=== PATIENT | male | born 1975 | race African-American/Black ===

== ENCOUNTER 2018-03-27 22:24 | Inpatient (IN) | payer OTHER ==
[~2018-03-27] VITALS: Ht 167.6 cm; Wt 68.2 kg
--- NOTE | 2018-03-27 22:44 | ED GENERAL ADULT ---
History of Present Illness General Chief Complaint: General Adult Stated Complaint: "DKA, DEHYDRATED,+N+V-D" Source: patient Exam Limitations: no limitations Vital Signs & Intake/Output Vital Signs & Intake/Output Vital Signs Date Time Temp Pulse Resp B/P B/P Pulse O2 O2 Flow FiO2 Mean Ox Delivery Rate 03/28 0320 100 Room Air 03/28 0320 97.7 120 24 150/100 100 Room Air 03/28 0105 96.6 115 20 166/93 100 Room Air 03/28 0019 98.8 116 20 125/58 95 Room Air 03/27 2234 97.4 116 18 115/65 98 Room Air ED Intake and Output 03/28 0000 03/27 1200 Intake Total 1000 Output Total Balance 1000 Intake, IV 1000 Patient 157 lb Weight Allergies Coded Allergies: No Known Allergies (03/27/18) Reconcile Medications Atorvastatin Calcium 20 MG TABLET 1 TAB PO DAILY HL (Reported) Insulin Glargine,Hum.rec.anlog (Lantus Solostar) 100 UNIT/ML (3 ML) INSULN.PEN 20 UNIT SC QPM DM (Reported) Lisinopril 2.5 MG TABLET 1 TAB PO DAILY HTN (Reported) Sitagliptin Phos/Metformin HCl (Janumet 50-1,000 MG Tablet) 50 MG-1,000 MG TABLET 1 TAB PO BID DM (Reported) Triage Note: 42 YEAR OLD MALE TO TRIAGE WITH COMPLAINTS THAT HE THINKS HE IS IN DKA, FEELS LIKE HE IS DEHYDRATED" BUT STATES THAT HE HAS BEEN DRINKING LEMON WATER ALL DAY. PT IS IDDM AND STATES THAT HE DID NOT TAKE HIS INSULIN TODAY OR HIS FINGERSTICK, FS AT TRIAGE GREATER THAN 500 , STATES THAT HIS MOUTH FEELS DRY , AND THAT HE FEELS VERY WEAK , PT UNABLE TO HOLD HIS HEAD UP AT TRIAGE Triage Nurses Notes Reviewed? yes Onset: Abrupt Duration: day(s): Timing: recent history Injury Environment: home Severity: moderate, severe Modifying Factors: Improves With: rest. Associated Symptoms: weakness HPI: 42 yo gentleman with diabetes, shares that he last took his lantus yesterday. He had his insulin in his car, but neglected to take it. He presents with glucose >500. He notes that he feels weak, dizzy, with mild nausea. Past History Travel History Traveled to [place] past 21 day No Medical History Any Pertinent Medical History? 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 No Review of Systems Review of Systems Constitutional: Reports: no symptoms. EENTM: Reports: no symptoms. Respiratory: Reports: no symptoms. Cardiovascular: Reports: no symptoms. GI: Reports: no symptoms. Genitourinary: Reports: no symptoms. Musculoskeletal: Reports: no symptoms. Skin: Reports: no symptoms. Neurological/Psychological: Reports: no symptoms. Hematologic/Endocrine: Reports: no symptoms. Immunologic/Allergic: Reports: no symptoms. All Other Systems: Reviewed and Negative Physical Exam Physical Exam General Appearance: moderate distress Head: normal appearance Eyes: Bilateral: normal appearance. Ears, Nose, Throat: normal pharynx, dry mucosa Neck: normal inspection, supple, full range of motion Respiratory: normal breath sounds, chest non-tender, no respiratory distress, quiet respiration, lungs clear Cardiovascular: regular rate/rhythm Gastrointestinal: normal bowel sounds, soft, non-tender Back: normal inspection, normal range of motion Extremities: normal inspection, normal capillary refill, normal range of motion, no edema Neurologic/Psych: no motor/sensory deficits, awake, alert, oriented x 3 Skin: intact, normal color, warm/dry Core Measures ACS in differential dx? No CVA/TIA Diagnosis: No Sepsis Present: No Sepsis Focused Exam Completed? No Progress Differential Diagnoses I considered the following diagnoses in my evaluation of the patient: dka vs sepsis vs other. Plan of Care: Orders Procedure Date/time Status Nothing by Mouth 03/28 B Active ICU LAB BUNDLE 03/28 07 Active CBC WITHOUT DIFFERENTIAL 03/28 07 Active ACTIVE SURVEILLANCE NARES 03/28 0400 Active Wound Care/Dressing 03/28 318 Complete Weight 03/28 318 Active VTE Mechanical Prophylaxis 03/28 318 Active Vital Signs 03/28 318 Active Turn and Reposition 03/28 318 Complete Drains/Tubes 03/28 318 Complete Teach/Educate 03/28 318 Active Skin Integrity Protocol 03/28 318 Active Skin/Pressure Ulcer Assess (Sk 03/28 0318 Active Precautions 03/28 0318 Active Pain Treatment and Response 03/28 0318 Active Nutritional Intake, Monitor 03/28 031 Active Isolation 03/28 0318 Active CIWA 03/28 031 Complete Patient Care Conference 03/28 0318 Active Activity/Ambulation 03/28 0318 Active ICU LAB BUNDLE 03/28 0300 Complete CBC WITHOUT DIFFERENTIAL 03/28 0300 Complete LACTIC ACID 03/28 0144 Complete ARTERIAL BLOOD GAS (GEN) 03/28 0023 Active URINALYSIS 03/28 0017 Complete Pathway - chart 03/28 0004 Active House Staff 03/28 0004 Active Patient Data 03/28 0004 Active Code Status 03/28 0004 Active Lab Add-on Test 03/28 UNK Active VTE Mechanical Prophylaxis 03/28 UNK Active Intake & Output 03/28 UNK Active FingerStick- Glucose 03/28 UNK Active Patient Data 03/27 2345 Active Admit to inpatient 03/27 2342 Active Intake & Output 03/27 2312 Complete PHOSPHORUS 03/27 2305 Active MAGNESIUM 03/27 2305 Active GLYCOSYLATED HGB 03/27 2305 Active MIXED VENOUS BLOOD GAS (GEN) 03/27 2246 Complete ACETONE 03/27 2246 Complete TROPONIN LEVEL 03/27 2244 Active LIPASE 03/27 2244 Active LACTIC ACID 03/27 2244 Active HEPATIC FUNCTION PANEL 03/27 2244 Active D-DIMER 03/27 2244 Complete CBC WITHOUT DIFFERENTIAL 03/27 2244 Complete BASIC METABOLIC PANEL 03/27 2244 Active AMYLASE 03/27 2244 Active EKG 03/27 2244 Active FingerStick- Glucose 03/27 2239 Complete Current Medications Sig/Winnie Start time Last Medication Dose Stop Time Status Admin Dextrose/Water 1,000 ML ONCE ONE 03/28 0445 CANr (D5W 1000) 03/29 0044 Potassium Chloride 20 MEQ Q20H 03/28 0445 UNVr (KCL 20MEQ in D5W 1000ml) Dextrose/Water 1,000 ML (D5W 1000) Insulin Human Regular 100 UNIT ONCE ONE 03/28 0215 AC 03/28 (Novolin R (Insulin 03/28 2214 0239 Drip)) Sodium Chloride 100 ML (Normal Saline 0.9%) Insulin Detemir 20 UNITS DAILY 03/28 0115 AC 03/28 (Levemir) 0208 Sodium Bicarbonate 75 MEQ CONTINOUS INFUSION 03/28 0015 AC (Sodi.bicarb.8.4 % 50ML Gabi Inj) Sodium Chloride 1,000 ML (Half Normal Saline) Laboratory Tests 03/28/18 0245: Lactic Acid 1.8 03/28/18 0245: Anion Gap 22 H, Estimated GFR 42 L, Glucose 303 H, Calcium 8.2 L, Phosphorus 5.4 H, Magnesium 2.3, Total Bilirubin 0.3, AST 21, ALT 32, Albumin 3.9, CBC w Diff NO MAN DIFF REQ, RBC 3.61 L, MCV 88.2, MCH 28.6, MCHC 32.5 L, RDW 14.8 H , MPV 8.3, Gran % 80.2 H, Lymphocytes % 8.8 L, Monocytes % 10.9 H, Eosinophils % 0, Basophils % 0.1, Absolute Granulocytes 10.7 H, Absolute Lymphocytes 1.2, Absolute Monocytes 1.5 H, Absolute Eosinophils 0, Absolute Basophils 0 03/28/18 0103: Urinalysis LIGHT H, Urine Color STRAW, Urine Clarity CLEAR, Urine pH 6.0, Ur Specific [place] 1.025, Urine Protein NEG, Urine Ketones >=80, Urine Nitrite NEG , Urine Bilirubin NEG, Urine Urobilinogen 0.2, Ur Leukocyte Esterase NEG, Ur Microscopic SEDIMENT EXAMINED, Urine RBC 1-3, Urine Bacteria RARE H, Urine Mucus RARE, Urine Hemoglobin TRACE-LYSED H, Urine Glucose >=1000 H 03/27/18 2305: Anion Gap 36 H, Estimated GFR 30 L, BUN/Creatinine Ratio 15.8, Glucose 785 *H, Hemoglobin A1c Pending, Lactic Acid 3.3 H, Calcium 10.1, Phosphorus 10.5 H, Magnesium 2.6 H, Total Bilirubin 0.4, Direct Bilirubin 0.3, AST 22, ALT 27, Alkaline Phosphatase 111, Troponin I 0.01, Total Protein 7.3, Albumin 5.1 H, Amylase 59, Lipase 43, D-Dimer High Sensitivty < 200, CBC w Diff MAN DIFF ORDERED, RBC 4.21 L, MCV 89.8, MCH 28.8, MCHC 32.1 L, RDW 14.5, MPV 8.5, Gran % 83.8 H, Lymphocytes % 11.7 L, Monocytes % 4.2, Eosinophils % 0.1, Basophils % 0.2, Absolute Granulocytes 9.0 H, Segmented Neutrophils 86 H, Band Neutrophils 1, Absolute Lymphocytes 1.3, Lymphocytes 9 L, Monocytes 4, Absolute Monocytes 0.4, Absolute Eosinophils 0, Absolute Basophils 0, Platelet Estimate INCREASED, Normocytic RBCs VERIFIED, Normochromic RBCs VERIFIED, Acetone Level POSITIVE AT 1:16 DIL 03/27/18 2301: Bicarbonate Actual 7 L, Mixed VBG pH 7.16 L, Mixed VBG pCO2 21 L, Mixed VBG O2 Saturation 61 H, Carboxyhemoglobin 0.9 L, O2 Concentration % R/A, Phlebotomy Draw Site VENOUS Microbiology 03/28 0300 UPPER RESP: Surveillance Culture - RECD Diagnostic Imaging: Viewed by Me: CT Scan. Discussed w/RAD: CT Scan. Radiology Impression: PATIENT: LUCILA DANIELS PRESENT AGE: 42 PATIENT ACCOUNT NO: [id number] : 75 LOCATION: [facility] ORDERING PHYSICIAN: Arias Rosa MD SERVICE DATE: 03/27/18 EXAM TYPE: RAD - XRY-PORTABLE CHEST XRAY EXAMINATION: XR PORTABLE CHEST CLINICAL INFORMATION: Fever. COMPARISON: Chest radiograph 07/25/2008 TECHNIQUE: Portable frontal view of the chest was obtained. FINDINGS: 18 mm faint nodular density seen projecting over the left lower lobe, just adjacent to the left heart border is nonspecific, though not seen on the prior exam. No additional focal lung opacities identified. No pneumothorax or pleural effusion. Cardiac silhouette is within normal limits for size. Regional osseous structures are intact. IMPRESSION: 18 mm nodular density projecting over the left lower lobe may be projectional in etiology, though follow-up with dedicated CT chest is recommended to exclude an underlying pulmonary nodule. DICTATED BY: Parevz Mcleod MD DATE/TIME DICTATED:03/27/182333 BOARDER MACHINE:RHONDA DATE/TIME TRANSCRIBED:03/27/182333 CONFIDENTIAL, DO NOT COPY WITHOUT APPROPRIATE AUTHORIZATION. <Electronically signed in Other Vendor System> SIGNED BY: Parvez Mcleod MD 03/27/18 9642 Initial ED EKG: sinus tach, borderline peaked t waves Departure Departure Disposition: STILL A PATIENT Condition: Stable Clinical Impression Primary Impression: DKA (diabetic ketoacidoses) Secondary Impressions: Lactic acidosis, Renal failure Referrals: Patient Has No Primary Care Dr (PCP/Family) Departure Forms: Customer Survey General Discharge Information Admission Note Spoke With: Jose Fox MD Documentation of Exam: Documentation of any treatments & extenuating circumstances including Concerns Regarding Discharge (functional status, medication knowledge or non-compliance, living conditions, etc.) that warrant an admission rather than observation: pt with dka, renal failure, merits fluid resuscitation, insulin gtt, endo consult. Critical Care Note Critical Care Note Critical Care Time: 30-74 min
[2018-03-27 23:18] LABS: ABSOLUTE BASOPHIL COUNT 0 /CUMM (0.0-0.2); ABSOLUTE EOSINOPHIL COUNT 0 /CUMM (0.0-0.7); ABSOLUTE LYMPH COUNT 1.3 /CUMM (1.2-3.4); ABSOLUTE MONOCYTE COUNT 0.4 /CUMM (0.10-0.60); BASOPHIL % 0.2 % (0.0-2.0); EOSINOPHIL % 0.1 % (0-5); HEMATOCRIT 37.8 % (42-52); MEAN CORPUSCULAR HGB 28.8 PG (27.0-31.0); MEAN CORPUSCULAR HGB CONC 32.1 G/DL (33.0-37.0); MEAN CORPUSCULAR VOLUME 89.8 FL (80.0-94.0); MEAN PLATELET VOLUME 8.5 FL (7.4-10.4); PLATELET COUNT 438 /CUMM (130-400); RBC DISTRIBUTION WIDTH 14.5 % (11.5-14.5); RED BLOOD CELL CT 4.21 /CUMM (4.70-6.10); WHITE BLOOD CELL COUNT 10.7 /CUMM (4.8-10.8)
[2018-03-27 23:20] LABS: GRANULOCYTE % 83.8 % (42.2-75.2)
--- NOTE | 2018-03-27 23:42 | RADIOLOGY REPORT ---
EXAMINATION: XR PORTABLE CHEST CLINICAL INFORMATION: Fever. COMPARISON: Chest radiograph 07/25/2008 TECHNIQUE: Portable frontal view of the chest was obtained. FINDINGS: 18 mm faint nodular density seen projecting over the left lower lobe, just adjacent to the left heart border is nonspecific, though not seen on the prior exam. No additional focal lung opacities identified. No pneumothorax or pleural effusion. Cardiac silhouette is within normal limits for size. Regional osseous structures are intact. IMPRESSION: 18 mm nodular density projecting over the left lower lobe may be projectional in etiology, though follow-up with dedicated CT chest is recommended to exclude an underlying pulmonary nodule.
--- NOTE | 2018-03-28 00:18 | History & Physical ---
Rashid Haines 03/28/18 0016: General Information and HPI MD Statement: I have seen and personally examined LUCILA DANIELS and documented this H&P. The patient is a 42 year old M who presented with a patient stated chief complaint of [nausea, vomiting, weakness]. Source of Information: patient Exam Limitations: no limitations History of Present Illness: Patient is a 42-year-old man with a past medical history significant for diabetes mellitus type 2 for 12 years on insulin and oral hypoglycemic agents, hypertension, and hyperlipidemia who presented to ED because he thought he is having DKA. This morning when he woke up he had ice water with lemon water the first thing in the morning, then he lied down because he was not feeling good, he felt nauseous and vomited one time clear liquids that he had taken. Then he felt weak through the day. Later he had some sausages. Then he came to ED because he was weak, nauseous, and had vomited for 1 time. Since he had previous episodes of DKA, he thought he might be having another episode of DKA. When he was in ED he had one more episode of vomiting which consisted of the needle that he had earlier during the day. He has diabetes mellitus type 2 for 12 years and he was prescribed metformin and Lantus insulin and also short-acting insulin. (Based on the old note from Dr. Casas in 2008, it is mentioned that he has type 1 diabetes mellitus) he is supposed to take 20 units of Lantus daily and 9 dose of short-acting plus sliding scale insulin and if blood sugar more than 350 then 20 more units. He confirms that he is not compliant with his medications, and when asked about the reason he says " my negligence. He confirms that the last time that he has taken his Lantus was on Wednesday and he received 20 units of Lantus, and the last time that he to short acting insulin was on Wednesday. He reports that the last hemoglobin A1c that he remembers was something between 12-14. He has had multiple episodes of DKA, all of each due to not taking insulin. He reports that in the last week he has forgotten to take insulin at least 2 times, and he is not compliant with his medications. He is a smoker, and he has occasional coughs and also sputum production, he denies any change in the amount of his sputum, its color, or consistency. He denies any fever, sore throat, ear pain, postnasal drip, heaviness or pain in face, headache, lightheadedness, dizziness, chest pain, chest pressure, chest tightness, shortness of breath, abdominal pain, dysuria, frequency, change in urine color, constipation, diarrhea, or any wounds or infection or tenderness on extremities or other parts of body. His urine output is normal. He reports that he has no tingling or numbness or loss of sensation in his lower extremities. He denies any history of cardiac, thyroid, or pulmonary disease. He states that he was diagnosed with hypertension and hyperlipidemia and was prescribed some medication for these conditions, but has not been taking those medications either. 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 His PCP is Dr. Sharma in [place]. We have limited old records on PCI and we do not know the baseline labs for him. Allergies: He does not have any allergy to any medications or food Past medical history: Diabetes mellitus on insulin, hypertension, hyperlipidemia Surgical history: Noncontributory Family history: He reports that both maternal and paternal side has history of diabetes mellitus Social history: He smokes 3 cigarettes per day for more than 15 years, he drinks alcohol on weekends, and he denies any recreational drug use. He does not work currently, lives alone, and is not compliant with medications. Allergies/Medications Allergies: Coded Allergies: No Known Allergies (03/27/18) Home Med list Atorvastatin Calcium 20 MG TABLET 1 TAB PO DAILY HL (Reported) Insulin Glargine,Hum.rec.anlog (Lantus Solostar) 100 UNIT/ML (3 ML) INSULN.PEN 20 UNIT SC QPM DM (Reported) Lisinopril 2.5 MG TABLET 1 TAB PO DAILY HTN (Reported) Sitagliptin Phos/Metformin HCl (Janumet 50-1,000 MG Tablet) 50 MG-1,000 MG TABLET 1 TAB PO BID DM (Reported) Compliance With Home Meds: POOR Past History Travel History Traveled to [place] past 21 day No Medical History Neurological: NONE EENT: NONE Cardiovascular: hypertension Respiratory: NONE Gastrointestinal: NONE Hepatic: NONE Renal: NONE Musculoskeletal: NONE Psychiatric: NONE Endocrine: diabetes Blood Disorders: NONE Cancer(s): NONE METAL REFINER/Reproductive: NONE Surgical History Surgical History: non-contributory Past Family/Social History Psychosocial History Services at Home: NONE ETOH Use: denies use Illicit Drug Use: denies illicit drug use Review of Systems Review of Systems Constitutional: Reports: see HPI. Exam & Diagnostic Data Last 24 Hrs of Vital Signs/I&O Vital Signs Date Time Temp Pulse Resp B/P B/P Pulse O2 O2 Flow FiO2 Mean Ox Delivery Rate 03/28 0105 96.6 115 20 166/93 100 Room Air 03/28 0019 98.8 116 20 125/58 95 Room Air 03/27 2234 97.4 116 18 115/65 98 Room Air Intake & Output 03/28 0800 03/28 0000 03/27 1600 Intake Total 1000 Output Total Balance 1000 Intake, IV 1000 Patient 157 lb Weight Physical Exam General Appearance Alert, Oriented X3, Cooperative, No Acute Distress Skin No Rashes Skin Temp/Moisture Exam: Warm/Dry Sepsis Skin Exam (color): Normal for Ethnicity HEENT Atraumatic, PERRLA, EOMI, Dry Mucosa Neck Supple, No JVD Cardiovascular Regular Rate, Normal S1, Normal S2, Tachycardic Lungs Normal Air Movement, Generalized minimal wheeze Abdomen Normal Bowel Sounds, Soft, No Tenderness Neurological Normal Speech, Strength at 5/5 X4 Ext, Normal Tone, Sensation Intact, Cranial Nerves 3-12 NL Extremities No Clubbing, No Cyanosis, No Edema, Normal Pulses, No Tenderness/ Swelling Vascular Normal Pulses, Pulses Symmetrical Last 24 Hrs of Labs/Humble: Laboratory Tests 03/28/18 0103: Urine Color Pending, Urine Clarity Pending, Urine pH Pending, Ur Specific [place] Pending, Urine Protein Pending, Urine Ketones Pending, Urine Nitrite Pending, Urine Bilirubin Pending, Urine Urobilinogen Pending, Ur Leukocyte Esterase Pending, Ur Microscopic Pending, Urine Hemoglobin Pending, Urine Glucose Pending 03/27/18 2305: Anion Gap 36 H, Estimated GFR 30 L, BUN/Creatinine Ratio 15.8, Glucose 785 *H, Lactic Acid 3.3 H, Calcium 10.1, Total Bilirubin 0.4, Direct Bilirubin 0.3, AST 22, ALT 27, Alkaline Phosphatase 111, Troponin I 0.01, Total Protein 7.3, Albumin 5.1 H, Amylase 59, Lipase 43, D-Dimer High Sensitivty < 200, CBC w Diff MAN DIFF ORDERED, RBC 4.21 L, MCV 89.8, MCH 28.8, MCHC 32.1 L, RDW 14.5, MPV 8.5, Gran % 83.8 H, Lymphocytes % 11.7 L, Monocytes % 4.2, Eosinophils % 0.1, Basophils % 0.2, Absolute Granulocytes 9.0 H, Segmented Neutrophils 86 H, Band Neutrophils 1, Absolute Lymphocytes 1.3, Lymphocytes 9 L, Monocytes 4, Absolute Monocytes 0.4, Absolute Eosinophils 0, Absolute Basophils 0, Platelet Estimate INCREASED, Normocytic RBCs VERIFIED, Normochromic RBCs VERIFIED, Acetone Level POSITIVE AT 1:16 DIL 03/27/18 2301: Bicarbonate Actual 7 L, Mixed VBG pH 7.16 L, Mixed VBG pCO2 21 L, Mixed VBG O2 Saturation 61 H, Carboxyhemoglobin 0.9 L, O2 Concentration % R/A, Phlebotomy Draw Site VENOUS Diagnostic Data EKG Results NSR, 103, QTc 440, VA interval 152, CXR Results 18 mm nodular density projecting over the left lower lobe may be projectional in etiology, though follow-up with dedicated CT chest is recommended to exclude an underlying pulmonary nodule. Assessment/Plan Assessment: Patient is a 42-year-old male with a past medical history significant for diabetes mellitus on insulin, hyperlipidemia, and hypertension who was admitted to the ED because of DKA induced by noncompliance to medications. DKA: The patient has a pH of 7.16, bicarb of 7, and positive acetone. Blood sugar was 785. His PCO2 was found to be 21. Potassium was 6.6. Anion gap was 36 with a sodium of 137. He has normal urine output. Based on the history and physical examination no source of infection was found. The patient is afebrile. Dehydrated, and tachycardic. Plan: Hydrate the patient with normal saline boluses, IV insulin, check blood sugar every hour, check sodium and potassium every 4 hour and replete as needed, chest x-ray, EKG, Respiratory tract secretion culture, UA/UC, repeat lactic acid , endocrine consult Acute on chronic kidney injury: The patient has a creatinine of 2.4, and BUN of 38. He is not compliant with his medications, he has a history of hypertension and diabetes with high HbA1c. Probably there is a background chronic kidney injury, and now there is an acute on chronic kidney injury due to dehydration. We have limited medical records of this patient, and do not know the baseline creatinine. Plan: Hydrate the patient, avoid nephrotoxic agents, recheck creatinine, try to obtain old medical records As Ranked By This Provider Problem List: 1. DKA (diabetic ketoacidoses) 2. HTN (hypertension) 3. HLD (hyperlipidemia) 4. Non compliance with medical treatment Core Measures/Misc (03/21) Acute Coronary Syndrome ACS Diagnosis: No Congestive Heart Failure Congestive Heart Failure Diagnosis No Cerebrovascular Accident CVA/TIA Diagnosis: No VTE (View Protocol) VTE Risk Factors Age>40 No Mechanical VTE Prophylaxis d/t N/A MechProphylax Ordered No VTE Pharm Prophylaxis d/t NA PharmProphylax ordered Sepsis (View protocol) Sepsis Present: No If YES complete Sepsis Event Note If YES complete Sepsis Event Note Delgado Tuttle MD 03/28/18 0019: Core Measures/Misc (03/21) Sepsis (View protocol) If YES complete Sepsis Event Note If YES complete Sepsis Event Note Resident Review Statement Resident Statement: examined this patient, discussed with fall intern, agreed with fall intern, discussed with family Other Findings: Patient is a 42-year old, non compliant male presented with complaint of that he is in DKA and he felt dehydrated. Most of the history is taken from the patient. He has history of non-insulin- dependent diabetes, multiple episodes of DKA, hypertension, hyperlipidemia. He is following Dr. Sharma at the [place]. He accept that he is noncompliant with insulin and that is why he usually get the DKA. Last week he rested on 2 doses of insulin. He visited his friend living at [place] since last 2 days. Today in the morning he did not take his Lantus. He was drinking a lot of lemon water and ice chips since morning. He was feeling dehydrated, along with nausea , vomited 2 times, with generalized weakness. He thought he is in DKA so he came back to the [facility] ED for further evaluation and management. At the time of admission his blood sugar was 500 mg. Of note patient was at [facility] around a month ago and his dose of Lantus has been decreased to 20 units. He was told to follow Dr. Sharma but he did not. His last HbA1c was in the range of 12-14. He was taking Lantus every time in the morning and wanted to switch in the night. 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, Blood workup showed-hemoglobin 12.1, RBC 4.1, hematocrit 37.8, platelet count 438, granulocyte 83.8, lymphocyte 11.7, segmented neutrophils 86, sodium 137, potassium 6.6, chloride 94, carbon dioxide 7, anion gap 36, BUN 38, creatinine 2.4, glucose 785, lactic acid 2.3, calcium 10.1, total bilirubin 0.4, direct bilirubin 0.3, AST 22, ALT 27, alkaline phosphatase 111, troponin less than 0.01 , albumin 5.1, amylase 59, lipase 43, d-dimer less than 200, DVT showed-pH 7.16, PCO2 21, bicarbonate actually 7 Acetone level was positive Chest x-ray-18 mm nodular density projecting over the left lower lobe may be projectional in etiology. Problem list- Diabetic ketoacidosis secondary to noncompliance with insulin Type 2 diabetes Hypertension Hyperlipidemia DARY Assessment and plan- * We will admit the patient to ICU * Treat according to the DKA protocol * Start on insulin drip * BEP every 4 hourly * We will give normal saline bolus - 1000 cc X 2 * We will check blood sugar every 1 hourly * If blood sugar went down to less than 250 then start On D5 1/2 normal saline * Strict intake output charting * Repeat ABG in the morning * Start on sodium bicarb drip 75 cc and half normal saline at the rate of 200 cc /h * We will follow endocrinology recommendation * We started patient on insulin Lantus 20 units daily * Zofran as needed for nausea * We will continue tablet lisinopril and atorvastatin as before * UA to rule out DM nepphropathy, check mag, and phosphorus * Please get reords from [facility]. * Diet- NPO till anion sigala get closed, than start on consistent carbohydrate diet * CODE STATUS-full code * DVT prophylaxis-ALPS/heparin Jose Fox 03/28/18 0200: Core Measures/Misc (03/21) Sepsis (View protocol) If YES complete Sepsis Event Note If YES complete Sepsis Event Note Attending MD Review Statement Attending Statement Attending MD Statement: examined this patient, discuss w/resident/PA/GLAZE SPRAYER, agreed w/resident/PA/GLAZE SPRAYER, reviewed images, amended to note Attending Assessment/Plan: Addendum by . Patient was seen and examined at bedside today (03/28/18) at 1:15Am. Reviewed the history physical done by the resident. Reviewed the past medical family, family, social history. ROS: 10 point system reviewed and negative except as described above. Additional details: Patient is 42 years old male with type 1? Diabetes mellitus (but on janumet),, multiple admissions for DKA in other hospitals,, diabetic nephropathy, hypertension, hyperlipidemia he is admitted for DKA r DKA. Patient says that he did not take his insulin this morning but had breakfast after that he had few lemonade mixed with sugar. Patient says that he has prior details because of noncompliance. Denies having any infection at any time in the past. Patient denies any cardiorespiratory or genitourinary symptoms at this point. Exam: -[place] Citizen male thin built not in distress. Cardiorespiratory exam normal except tachycardia. Abdomen examination is normal See the resident note for full examination Labs, chest x-ray reviewed #Diabetic ketoacidosis-has bicarb 7, pH was 7.1 and WBC, gap 36 with sugars more than 500. Started patient on insulin drip. Also patient received 3 L of normal saline bolus in the ER. Potassium is 6.6. Will continue with insulin drip, repeat BMP q. 6 hourly. Started on bicarb drip as well. If the sugar drops below 250 start on D5W infusion as well. Continue the insulin drip until anion gap is closed and stable on repeat BMP. Also gave 1 dose of his home Lantus dose. Endocrinology evaluation in the morning. Patient needs to be compliant with the medications. #creatinine 2.4, acute versus acute on chronic renal failure. No baseline labs available. Continue with IV fluids and watch. Patient likely had a chronic renal failure from diabetic nephropathy. Avoid nephrotoxic medications. #Pulmonary edema versus artifact noted on chest x-ray-can repeat Chest x-ray i am.. #Hypertension, hyperlipidemia-continue the home medications. Reviewed with the resident. Agree with the rest of the plan as per resident's note. Dr.Ravinder Zana MD. Hospitalist. Pager: [phone], cell: [phone].
[2018-03-28] MEDS ORDERED: JANUMET 50-1,01 EACH PO (00:41)
[2018-03-28] MEDS ORDERED: LISINOPRIL2.5 M1 PO (00:41)
[2018-03-28] MEDS ORDERED: ATORVASTATIN CA20 M1 PO (00:42)
[2018-03-28] MEDS ORDERED: LANTUS SOL100 UNIT/1 SC (00:42)
[2018-03-28 03:20] VITALS: BP 150/100
[2018-03-28 04:07] LABS: ABSOLUTE BASOPHIL COUNT 0 /CUMM (0.0-0.2); ABSOLUTE EOSINOPHIL COUNT 0 /CUMM (0.0-0.7); EOSINOPHIL % 0 % (0-5); RED BLOOD CELL CT 3.61 /CUMM (4.70-6.10)
[2018-03-28 04:19] LABS: ABSOLUTE GRANULOCYTE CT 10.7 /CUMM (1.4-6.5); ABSOLUTE LYMPH COUNT 1.2 /CUMM (1.2-3.4); ABSOLUTE MONOCYTE COUNT 1.5 /CUMM (0.10-0.60); BASOPHIL % 0.1 % (0.0-2.0); GRANULOCYTE % 80.2 % (42.2-75.2); MEAN CORPUSCULAR HGB 28.6 PG (27.0-31.0); MEAN CORPUSCULAR HGB CONC 32.5 G/DL (33.0-37.0); MEAN CORPUSCULAR VOLUME 88.2 FL (80.0-94.0); MEAN PLATELET VOLUME 8.3 FL (7.4-10.4); PLATELET COUNT 370 /CUMM (130-400); RBC DISTRIBUTION WIDTH 14.8 % (11.5-14.5); WHITE BLOOD CELL COUNT 13.4 /CUMM (4.8-10.8)
[2018-03-28 04:24] LABS: HEMATOCRIT 31.9 % (42-52)
[2018-03-28 08:00] VITALS: BP 120/60
[2018-03-28 08:13] LABS: ABSOLUTE BASOPHIL COUNT 0 /CUMM (0.0-0.2); ABSOLUTE EOSINOPHIL COUNT 0 /CUMM (0.0-0.7); ABSOLUTE LYMPH COUNT 1.6 /CUMM (1.2-3.4); ABSOLUTE MONOCYTE COUNT 1.2 /CUMM (0.10-0.60); BASOPHIL % 0.3 % (0.0-2.0); EOSINOPHIL % 0.1 % (0-5); GRANULOCYTE % 77.7 % (42.2-75.2); HEMATOCRIT 29.7 % (42-52); MEAN CORPUSCULAR HGB 28.8 PG (27.0-31.0); MEAN CORPUSCULAR HGB CONC 33.1 G/DL (33.0-37.0); MEAN CORPUSCULAR VOLUME 87.1 FL (80.0-94.0); MEAN PLATELET VOLUME 8.1 FL (7.4-10.4); PLATELET COUNT 363 /CUMM (130-400); RBC DISTRIBUTION WIDTH 14.5 % (11.5-14.5); RED BLOOD CELL CT 3.41 /CUMM (4.70-6.10); WHITE BLOOD CELL COUNT 12.9 /CUMM (4.8-10.8)
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
--- NOTE | 2018-03-28 10:28 | CT SCAN REPORT ---
EXAMINATION: CT CHEST WITHOUT CONTRAST CLINICAL INFORMATION: 42-year-old long-term smoker with a questionable left lower lobe nodular density on recent chest x-ray. COMPARISON: Portable chest x-ray of 03/27/2018. TECHNIQUE: Multidetector volumetric CT imaging of the chest was performed without intravenous demonstration contrast. Axial MIP volume rendering provided. Sagittal and coronal reformatted images were obtained. 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 LUNGS: No pulmonary nodules or masses are identified. There is no evidence of focal infiltrates, groundglass opacities, or consolidation. Dependent atelectatic changes are noted at both lung bases. The tracheobronchial tree is patent. MEDIASTINUM/RUBEN: No mediastinal or hilar adenopathy is identified although limited due to lack of intravenous contrast. The thoracic aorta is normal in caliber. There is no apparent pericardial effusion. The heart is not enlarged. PLEURA: There is no pleural effusion. No pleural mass or thickening. AXILLA/CHEST WALL: No supraclavicular or axillary adenopathy is identified. There is no evidence of a chest wall mass. UPPER ABDOMEN: Unremarkable. OSSEOUS STRUCTURES: There is no evidence of focal osteolytic or osteoblastic changes. IMPRESSION: 1. No CT evidence of a pulmonary lesion or adenopathy. 2. No active pulmonary process identified.
--- NOTE | 2018-03-28 14:58 | Cons- Endocrinology ---
General Information and HPI Consulting Request Date of Consult: 03/28/18 Requested By: ICU Reason for Consult: DKA Source of Information: patient, old records Exam Limitations: no limitations History of Present Illness: 42 y/o male hx of diabetes 12 years, was in in 2008 for DKA. He was admitted for DKA again last night after he stopped antidiabetic medications x 2 days. At home, he was supposed to take Lantus 20 units daily and Janumet mg twice a day. In ER, his glucose level was 785, Cr 2.4, K 6.6, bicarb 7, AG 36 and pH 7.16. Levemir 20 units was given at 2 am and he was on insulin drip. Currently he is on insulin drip at 3 units per hour and IVF of D5 1/2 NS with KCL at 200 ml/hour. His FSGs were 175 and 176. Repeat lab done at 7 am, his bicarb was 20, AG 12, Cr 1.3 and glucose 171. Allergies/Medications Allergies: Coded Allergies: No Known Allergies (03/27/18) Home Med List: Atorvastatin Calcium 20 MG TABLET 1 TAB PO DAILY HL (Reported) Insulin Glargine,Hum.rec.anlog (Lantus Solostar) 100 UNIT/ML (3 ML) INSULN.PEN 20 UNIT SC QPM DM (Reported) Lisinopril 2.5 MG TABLET 1 TAB PO DAILY HTN (Reported) Sitagliptin Phos/Metformin HCl (Janumet 50-1,000 MG Tablet) 50 MG-1,000 MG TABLET 1 TAB PO BID DM (Reported) Review of Systems Review of Systems Constitutional: Reports: see HPI. Cardiovascular: Denies: chest pain. Respiratory: Denies: short of breath. GI: Denies: abdominal pain. Neurological/Psychological: Reports: tingling (LE shooting pain). Hematologic/Endocrine: Denies: polyuria, polydipsia. 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 Surgical History Surgical History: non-contributory Psychosocial History Services at Home: NONE ETOH Use: denies use Illicit Drug Use: denies illicit drug use Exam & Diagnostic Data Last 24 Hrs of Vital Signs/I&O Vital Signs Date Time Temp Pulse Resp B/P B/P Pulse O2 O2 Flow FiO2 Mean Ox Delivery Rate 03/28 08 98.6 86 23 120/60 99 Room Air 03/28 0400 96 Room Air 03/28 0320 100 Room Air 03/28 0320 97.7 120 24 150/100 100 Room Air 03/28 0105 96.6 115 20 166/93 100 Room Air 03/28 0019 98.8 116 20 125/58 95 Room Air 03/27 2234 97.4 116 18 115/65 98 Room Air Intake & Output 03/28 1600 03/28 0800 03/28 0000 Intake Total 1388 1224 1000 Output Total 650 800 Balance 316 953 1172 Intake, IV 1028 1224 1000 Intake, Oral 360 Number 0 Bowel Movements Output, Urine 650 800 Patient 150 lb 157 lb Weight Physical Exam General Appearance: no apparent distress Neck: normal inspection Respiratory: lungs clear Cardiovascular: regular rate/rhythm Gastrointestinal: soft, non-tender Extremities: no edema Labs/Humble Results: Laboratory Tests 03/28 03/28 03/28 1429 1100 0700 Chemistry Sodium (137 - 145 mmol/L) Pending Cancelled 140 Potassium (3.5 - 5.1 mmol/L) Pending Cancelled 4.6 Chloride (98 - 107 mmol/L) Pending Cancelled 108 H Carbon Dioxide (22 - 30 mmol/L) Pending Cancelled 20 L Anion Gap (5 - 16) Pending Cancelled 12 BUN (9 - 20 mg/dL) Pending Cancelled 29 H Creatinine (0.7 - 1.2 mg/dL) Pending Cancelled 1.3 H Estimated GFR (>60 ml/min) > 60 BUN/Creatinine Ratio Pending Cancelled Glucose (65 - 99 mg/dL) 171 H Calcium (8.4 - 10.2 mg/dL) 8.3 L Phosphorus (2.5 - 4.5 mg/dL) 2.7 Magnesium (1.6 - 2.3 mg/dL) 2.0 Total Bilirubin (0.2 - 1.3 mg/dL) 0.3 AST (17 - 59 U/L) 19 ALT (21 - 72 U/L) 26 Creatine Kinase (55 - 170 U/L) 172 H Albumin (3.5 - 5.0 g/dL) 3.6 Hematology CBC w Diff NO MAN DIFF REQ WBC (4.8 - 10.8 /CUMM) 12.9 H RBC (4.70 - 6.10 /CUMM) 3.41 L Hgb (14.0 - 18.0 G/DL) 9.8 L Hct (42 - 52 %) 29.7 L MCV (80.0 - 94.0 FL) 87.1 MCH (27.0 - 31.0 PG) 28.8 MCHC (33.0 - 37.0 G/DL) 33.1 RDW (11.5 - 14.5 %) 14.5 Plt Count (130 - 400 /CUMM) 363 MPV (7.4 - 10.4 FL) 8.1 Gran % (42.2 - 75.2 %) 77.7 H Lymphocytes % (20.5 - 51.1 %) 12.7 L Monocytes % (1.7 - 9.3 %) 9.2 Eosinophils % (0 - 5 %) 0.1 Basophils % (0.0 - 2.0 %) 0.3 Absolute Granulocytes (1.4 - 6.5 /CUMM) 10.0 H Absolute Lymphocytes (1.2 - 3.4 /CUMM) 1.6 Absolute Monocytes (0.10 - 0.60 /CUMM) 1.2 H Absolute Eosinophils (0.0 - 0.7 /CUMM) 0 Absolute Basophils (0.0 - 0.2 /CUMM) 0 03/28 03/28 0245 0245 Chemistry Sodium (137 - 145 mmol/L) 142 Potassium (3.5 - 5.1 mmol/L) 4.7 Chloride (98 - 107 mmol/L) 109 H Carbon Dioxide (22 - 30 mmol/L) 11 L Anion Gap (5 - 16) 22 H BUN (9 - 20 mg/dL) 33 H Creatinine (0.7 - 1.2 mg/dL) 1.8 H Estimated GFR (>60 ml/min) 42 L Glucose (65 - 99 mg/dL) 303 H Lactic Acid (0.7 - 2.1 mmol/L) 1.8 Calcium (8.4 - 10.2 mg/dL) 8.2 L Phosphorus (2.5 - 4.5 mg/dL) 5.4 H Magnesium (1.6 - 2.3 mg/dL) 2.3 Total Bilirubin (0.2 - 1.3 mg/dL) 0.3 AST (17 - 59 U/L) 21 ALT (21 - 72 U/L) 32 Albumin (3.5 - 5.0 g/dL) 3.9 Hematology CBC w Diff NO MAN DIFF REQ WBC (4.8 - 10.8 /CUMM) 13.4 H RBC (4.70 - 6.10 /CUMM) 3.61 L Hgb (14.0 - 18.0 G/DL) 10.3 L Hct (42 - 52 %) 31.9 L MCV (80.0 - 94.0 FL) 88.2 MCH (27.0 - 31.0 PG) 28.6 MCHC (33.0 - 37.0 G/DL) 32.5 L RDW (11.5 - 14.5 %) 14.8 H Plt Count (130 - 400 /CUMM) 370 MPV (7.4 - 10.4 FL) 8.3 Gran % (42.2 - 75.2 %) 80.2 H Lymphocytes % (20.5 - 51.1 %) 8.8 L Monocytes % (1.7 - 9.3 %) 10.9 H Eosinophils % (0 - 5 %) 0 Basophils % (0.0 - 2.0 %) 0.1 Absolute Granulocytes (1.4 - 6.5 /CUMM) 10.7 H Absolute Lymphocytes (1.2 - 3.4 /CUMM) 1.2 Absolute Monocytes (0.10 - 0.60 /CUMM) 1.5 H Absolute Eosinophils (0.0 - 0.7 /CUMM) 0 Absolute Basophils (0.0 - 0.2 /CUMM) 0 03/28 0103 Toxicology Urine Opiates Screen (>2000 NG/ML) < 100 Methadone Screen (>300 NG/ML) < 40 Barbiturate Screen (>200 NG/ML) < 60 Ur Phencyclidine Scrn (>25 NG/ML) > 72.00 H Amphetamines Screen (>1000 NG/ML) < 100 U Benzodiazepines Scrn (>200 NG/ML) < 85 Urine Cocaine Screen (>300 NG/ML) < 50 Urine Cannabis Screen (>50 NG/ML) < 5.00 Urines Urinalysis LIGHT H Urine Color (YEL,AMB,STR) STRAW Urine Clarity (CLEAR) CLEAR Urine pH (5.0 - 8.0) 6.0 Ur Specific [place] (1.001 - 1.035) 1.025 Urine Protein (NEG,<30 MG/DL) NEG Urine Ketones (NEG) >=80 Urine Nitrite (NEG) NEG Urine Bilirubin (NEG) NEG Urine Urobilinogen (0.1 - 1.0 EU/dl) 0.2 Ur Leukocyte Esterase (NEG) NEG Ur Microscopic SEDIMENT EXAMINED Urine RBC (0 - 5 /HPF) 1-3 Urine Bacteria (NEG/NONE) RARE H Urine Mucus (FEW,NONE) RARE Urine Hemoglobin (NEG) TRACE-LYSED H Urine Glucose (N MG/DL) >=1000 H 03/27 03/27 2305 2301 Blood Gas Bicarbonate Actual (22 - 26 MEQ/L) 7 L Mixed VBG pH (7.31 - 7.41 PH) 7.16 L Mixed VBG pCO2 (41 - 51 TORR) 21 L Mixed VBG O2 Saturation (35 - 45 TORR) 61 H Carboxyhemoglobin (1.5 - 5.0 %) 0.9 L O2 Concentration % R/A Chemistry Sodium (137 - 145 mmol/L) 137 Potassium (3.5 - 5.1 mmol/L) 6.6 *H Chloride (98 - 107 mmol/L) 94 L Carbon Dioxide (22 - 30 mmol/L) 7 *L Anion Gap (5 - 16) 36 H BUN (9 - 20 mg/dL) 38 H Creatinine (0.7 - 1.2 mg/dL) 2.4 H Estimated GFR (>60 ml/min) 30 L BUN/Creatinine Ratio (7 - 25 %) 15.8 Glucose (65 - 99 mg/dL) 785 *H Hemoglobin A1c (4.2 - 5.8 %) 12.0 H Lactic Acid (0.7 - 2.1 mmol/L) 3.3 H Calcium (8.4 - 10.2 mg/dL) 10.1 Phosphorus (2.5 - 4.5 mg/dL) 10.5 H Magnesium (1.6 - 2.3 mg/dL) 2.6 H Total Bilirubin (0.2 - 1.3 mg/dL) 0.4 Direct Bilirubin (< 0.4 mg/dL) 0.3 AST (17 - 59 U/L) 22 ALT (21 - 72 U/L) 27 Alkaline Phosphatase (< 127 U/L) 111 Troponin I (<0.11 ng/ml) 0.01 Total Protein (6.3 - 8.2 g/dL) 7.3 Albumin (3.5 - 5.0 g/dL) 5.1 H Amylase (30 - 110 U/L) 59 Lipase (23 - 300 U/L) 43 Coagulation D-Dimer High Sensitivty (0 - 243 ng/ml) < 200 Hematology CBC w Diff MAN DIFF ORDERED WBC (4.8 - 10.8 /CUMM) 10.7 RBC (4.70 - 6.10 /CUMM) 4.21 L Hgb (14.0 - 18.0 G/DL) 12.1 L Hct (42 - 52 %) 37.8 L MCV (80.0 - 94.0 FL) 89.8 MCH (27.0 - 31.0 PG) 28.8 MCHC (33.0 - 37.0 G/DL) 32.1 L RDW (11.5 - 14.5 %) 14.5 Plt Count (130 - 400 /CUMM) 438 H MPV (7.4 - 10.4 FL) 8.5 Gran % (42.2 - 75.2 %) 83.8 H Lymphocytes % (20.5 - 51.1 %) 11.7 L Monocytes % (1.7 - 9.3 %) 4.2 Eosinophils % (0 - 5 %) 0.1 Basophils % (0.0 - 2.0 %) 0.2 Absolute Granulocytes (1.4 - 6.5 /CUMM) 9.0 H Segmented Neutrophils (42.2 - 75.2 %) 86 H Band Neutrophils (0.0 - 5.0 %) 1 Absolute Lymphocytes (1.2 - 3.4 /CUMM) 1.3 Lymphocytes (20.5 - 51.1 %) 9 L Monocytes (1.7 - 9.3 %) 4 Absolute Monocytes (0.10 - 0.60 /CUMM) 0.4 Absolute Eosinophils (0.0 - 0.7 /CUMM) 0 Absolute Basophils (0.0 - 0.2 /CUMM) 0 Platelet Estimate (ADEQUATE) INCREASED Normocytic RBCs VERIFIED Normochromic RBCs VERIFIED Miscellaneous Phlebotomy Draw Site VENOUS Toxicology Acetone Level (NEGATIVE) POSITIVE AT 1:16 DIL Assessment/Plan Assessment/Plan 42 y/o male hx of diabetes 12 years, was in in 2008 for DKA. He was admitted for DKA again last night after he stopped antidiabetic medications x 2 days. His repeat HbA1c was 12%. DKA has resolved. Dx: most likely patient has diabetes type 1. Plan: 1. check LESLY 65 antibody and C-peptide; 2. start Levemir 15 units twice a day; decrease IVF to 100 ml/hour; 3. stop insulin drip in one hour after he receives the first dose of Levemir; 4. start consistent carbohydrates 1 diet; start Novolog coverage before meals and Novolog coverage at bedtime; detail see the inpatient DM orders; 5. stop IVF after he tolerates lunch; 6. repeat electrolytes in the afternoon to make sure; 7. monitor FSGs will follow. Inpatient Diabetes Orders Before Each Meal: Bolus Insulin: Novolog < 80 mg/dl: no coverage 80-100 mg/dl: 6 units 101-120 mg/dl: 6 units 121-150 mg/dl: 6 units 151-200 mg/dl: 8 units 201-250 mg/dl: 10 units 251-300 mg/dl: 12 units 301-350 mg/dl: 14 units 351-400 mg/dl: 16 units > 400 mg/dl: 18 units Bedtime: Bolus Insulin: Novolog < 80 mg/dl: no coverage 80-100 mg/dl: no coverage 101-120 mg/dl: no coverage 121-150 mg/dl: no coverage 151-200 mg/dl: no coverage 201-250 mg/dl: no coverage 251-300 mg/dl: 2 units 301-350 mg/dl: 3 units 351-400 mg/dl: 4 units > 400 mg/dl: 5 units Consult Acknowledgment - Thank you for your consult request.
[2018-03-28 16:00] VITALS: BP 110/60
[2018-03-28 19:45] VITALS: BP 132/72
[2018-03-28 21:33] VITALS: BP 101/72
[2018-03-29 07:31] VITALS: BP 121/62
--- NOTE | 2018-03-29 07:47 | PN- Housestaff ---
Gregoria Wood 03/29/18 0747: Subjective Follow-up For: DKA Subjective: Patient was seen and examined lying comfortably in bed this morning he had just had his breakfast and was feeling fine. He does complain of tingling sensation in bilateral feet. He has had it in the past but reports that it is worse than before. He expresses his wishes of wanting to going home today. Review of Systems Constitutional: Reports: see HPI. Objective Last 24 Hrs of Vital Signs/I&O Vital Signs Date Time Temp Pulse Resp B/P B/P Pulse O2 O2 Flow FiO2 Mean Ox Delivery Rate 03/29 1300 98.2 76 20 113/70 100 Room Air 03/29 0731 97.7 75 18 121/62 100 03/28 2133 98.0 82 20 101/72 99 Room Air 03/28 1945 97.8 78 18 132/72 96 Intake & Output 03/29 1600 03/29 0800 03/29 0000 Intake Total 260 260 Output Total 400 600 300 Balance -400 -340 -40 Intake, IV 20 20 Intake, Oral 240 240 Output, Urine 400 600 300 Physical Exam General Appearance: Alert, Oriented X3, Cooperative, No Acute Distress Skin: No Rashes, No Breakdown, No Significant Lesion Skin Temp/Moisture Exam: Cool/Dry Sepsis Skin Exam (color): Normal for Ethnicity HEENT: Atraumatic, Mucous Membr. moist/pink Neck: Supple, No JVD, No thryomegaly Cardiovascular: Regular Rate, Normal S1, Normal S2, No Murmurs Lungs: Clear to Auscultation, Normal Air Movement Abdomen: Normal Bowel Sounds, Soft, No Tenderness, No Hepatospenomegaly, No Masses Neurological: Normal Speech, Strength at 5/5 X4 Ext, Normal Tone, Sensation Intact, Cranial Nerves 3-12 NL, Reflexes 2+ Extremities: No Clubbing, No Cyanosis, No Edema, Normal Pulses, No Tenderness/ Swelling Vascular: Normal Pulses, Pulses Symmetrical Sepsis Peripheral Pulse Location: Radial Current Medications: Current Medications Sig/Winnie Start time Last Medication Dose Route Stop Time Status Admin Atorvastatin Calcium 20 MG DAILY 03/30 09 AC PO Gabapentin 300 MG Q8 03/28 0740 AC 03/29 PO 1319 Insulin Aspart 0 TIDAC/HS 03/28 1200 AC 03/29 SC 1652 Insulin Detemir 20 UNITS QPM 03/29 2100 AC SC Insulin Detemir 15 UNITS BID 03/28 1033 DC 03/28 SC 2125 Lisinopril 2.5 MG DAILY 03/30 0900 AC PO Nicotine 21 MG DAILY PRN 03/28 0845 03/28 [facility] 0942 Last 24 Hrs of Lab/Humble Results Last 24 Hrs of Labs/Mics: Laboratory Tests 03/29/18 0723: C-Peptide Pending 03/29/18 0723: Anion Gap 10, Estimated GFR > 60, Glucose 29 *L, Calcium 8.6, Phosphorus 3.1, Magnesium 1.9, Total Bilirubin 0.1 L, AST 17, ALT 26, Albumin 3.3 L, CBC w Diff NO MAN DIFF REQ, RBC 3.63 L, MCV 86.1, MCH 29.0, MCHC 33.6, RDW 14.8 H, MPV 7.9, Gran % 73.0, Lymphocytes % 19.4 L, Monocytes % 5.7, Eosinophils % 1.9, Basophils % 0, Absolute Granulocytes 4.4, Absolute Lymphocytes 1.2, Absolute Monocytes 0.3, Absolute Eosinophils 0.1, Absolute Basophils 0, LESLY Antibody Pending Assessment/Plan Assessment: 42-year-old man with a past medical history significant for diabetes mellitus type 2 for 12 years on insulin and oral hypoglycemic agents, hypertension, and hyperlipidemia who presented to ED because he thought he is having DKA. Labs on admission: pH of 7.16, bicarb of 7, and positive acetone. Blood sugar was 785. His PCO2 was found to be 21. Potassium was 6.6. Anion gap was 36 Problems: 1.DKAresolved 2. Diabetes mellitus type1 Plan: than 50. He was given 2 cups of orange juice after which his Accu-Chek showed a reading of 107. His insulin was held after this. sliding scale for NovoLog Problem List: 1. DKA (diabetic ketoacidoses) Pain Ratin Pain Location: none Pain Goal: Remain pain free Pain Plan: pain pathway Tomorrow's Labs & Rationales: not required Kailyn Salgado 03/29/18 1123: Attending MD Review Statement Attending Statement Attending MD Statement: examined this patient, discuss w/resident/PA/SORORITY SUPERVISOR, agreed w/resident/PA/SORORITY SUPERVISOR, discussed with family, reviewed EMR data (avail), discussed with nursing, discussed with case mgmt, reviewed images, amended to note Attending Assessment/Plan: 42 o/m with pmh of DM comes with uncontrolled hyperglycemia with increased requirement of insulin with endocrinology recommendations. Patient this moprning has severe epsiode of hypoglycemia and morning insulin held. Blood glucose appear to rise after oral drinks. Please follow up with endocrinolgy and repeat blood sugar now with frequent monitoring. I suspect he has underlying brittle diabtes with difficult to control his sugars. He has PCP as outpatient at [facility].
[2018-03-29 08:23] LABS: ABSOLUTE BASOPHIL COUNT 0 /CUMM (0.0-0.2); ABSOLUTE EOSINOPHIL COUNT 0.1 /CUMM (0.0-0.7); ABSOLUTE LYMPH COUNT 1.2 /CUMM (1.2-3.4); ABSOLUTE MONOCYTE COUNT 0.3 /CUMM (0.10-0.60)
[2018-03-29 08:43] LABS: ABSOLUTE GRANULOCYTE CT 4.4 /CUMM (1.4-6.5); BASOPHIL % 0 % (0.0-2.0); EOSINOPHIL % 1.9 % (0-5); HEMATOCRIT 31.3 % (42-52); MEAN CORPUSCULAR HGB CONC 33.6 G/DL (33.0-37.0); MEAN CORPUSCULAR VOLUME 86.1 FL (80.0-94.0); MEAN PLATELET VOLUME 7.9 FL (7.4-10.4); PLATELET COUNT 338 /CUMM (130-400); RBC DISTRIBUTION WIDTH 14.8 % (11.5-14.5); RED BLOOD CELL CT 3.63 /CUMM (4.70-6.10)
[2018-03-29 08:48] LABS: WHITE BLOOD CELL COUNT 6.1 /CUMM (4.8-10.8)
--- NOTE | 2018-03-29 12:52 | PN- Diabetes ---
Assessment/Plan Diabetes Assessment: 42 y/o male hx of diabetes 12 years, was in in 2008 for DKA. He was admitted for DKA again after he stopped antidiabetic medications x 2 days. His repeat HbA1c was 12%. DKA has resolved. most likely patient has diabetes type 1. His home regimen is Lantus 20 units daily and Janumet. Plan: please start with Levemir 20 units qHS from [place]. Continue the same dose for Novolog I informed the patient that he will probably need to go home with both long acting and short acting insulin for better glucose control. He understood Awaiting C-peptide and Anti-LESLY Check BG ACHS. Change diet to carbohydrate level 1. Will follow Subjective Subjective: His venous blood glucose was 29 this morning. His morning Levemir was held. He said he was asymptomatic when the blood was collected this morning. Objective Last 24 Hrs of Vital Signs/I&O Vital Signs Date Time Temp Pulse Resp B/P B/P Pulse O2 O2 Flow FiO2 Mean Ox Delivery Rate 03/29 1300 98.2 76 20 113/70 100 Room Air 03/29 0731 97.7 75 18 121/62 100 03/28 2133 98.0 82 20 101/72 99 Room Air 03/28 1945 97.8 78 18 132/72 96 03/28 1600 98.4 85 13 110/60 98 Room Air Intake & Output 03/29 1600 03/29 0800 03/29 0000 Intake Total 260 260 Output Total 400 600 300 Balance -400 -340 -40 Intake, IV 20 20 Intake, Oral 240 240 Output, Urine 400 600 300
[2018-03-29 13:00] VITALS: BP 113/70
[2018-03-29 21:49] VITALS: BP 123/79
[2018-03-30 06:39] VITALS: BP 126/72
--- NOTE | 2018-03-30 06:48 | PN- Housestaff ---
Gregoria Wood 03/30/18 0648: Subjective Follow-up For: DKA Subjective: Patient seen and examined lying comfortably in bed this morning. He reports that his the numbness and tingling in bilateral feet is the same. He does not have any other complaints. Review of Systems Constitutional: Reports: no symptoms, see HPI. Objective Last 24 Hrs of Vital Signs/I&O Vital Signs Date Time Temp Pulse Resp B/P B/P Pulse O2 O2 Flow FiO2 Mean Ox Delivery Rate 03/30 1008 70 109/59 03/30 0639 97.9 63 18 126/72 100 Room Air 03/29 2149 98.0 72 18 123/79 100 Room Air Intake & Output 03/30 1600 03/30 0800 03/30 0000 Intake Total 240 350 Output Total 400 Balance 240 -50 Intake, Oral 240 350 Output, Urine 400 Physical Exam General Appearance: Alert, Oriented X3, Cooperative Other Physical Findings: Skin: No Breakdown Skin Temp/Moisture Exam: Cool/Dry Sepsis Skin Exam (color): Normal for Ethnicity HEENT: Atraumatic, PERRLA, EOMI, Mucous Membr. moist/pink Neck: Supple, No JVD, No thryomegaly Cardiovascular: Regular Rate, Normal S1, Normal S2, No Murmurs Lungs: CTA, No w/r/r Abdomen: Normal Bowel Sounds, Soft, No Tenderness, No Hepatospenomegaly Neurological: Normal Speech, normal gait, Normal Tone, Sensation Intact, Extremities: No Clubbing, No Cyanosis, No edema,Normal Pulses Vascular: Pulses Symmetrical Assessment/Plan Assessment: 42-year-old man with a past medical history significant for insulin-dependent diabetes mellitus, hypertension, and hyperlipidemia who presented to ED because he thought he is having DKA. Problems: 1.insulin-dependent diabetes mellitus: Most likely type 1 diabetes mellitus. We are waiting for results for LESLY and C-peptide to confirm the type of diabetes 2.DKAresolved Assessment and plan: not have any symptoms. The nurse woke him up to do his fingerstick and his Accu -Chek showed reading of 52. He was given a cup of orange juice, after which his blood sugar levels do not rise. After breakfast his blood sugar levels laura to 167. safe to be discharged home. But he expresses the strong wish to go home today. We suspect that he would sign out AMA. He was told of the risks and benefits of staying versus AMA. bedtime instead of 20 that he received yesterday. with his primary care physician and tax examining technician 1 week after discharge. follows in [place]. He wanted to refer him to of primary care physician associated with [facility] but patient refused. Problem List: 1. Hypoglycemia Pain Ratin Pain Location: NONE Pain Goal: Remain pain free Pain Plan: PAIN PATHWAY Tomorrow's Labs & Rationales: not req Kailyn Salgado 03/30/18 1146: Attending MD Review Statement Attending Statement Attending MD Statement: examined this patient, discuss w/resident/PA/COMMUNITY RELATIONS DIRECTOR, agreed w/resident/PA/COMMUNITY RELATIONS DIRECTOR, discussed with family, reviewed EMR data (avail), discussed with nursing, discussed with case mgmt, reviewed images, amended to note Attending Assessment/Plan: 42 o/m with pmh of DM comes with uncontrolled hyperglycemia with episodes of hypoglycemia. Patient this morning has mild epsiode of hypoglycemia BS 50 on lantus 20 Units at night time. Blood glucose appear to rise after oral drinks. Follow up with endocrinolgy recommend to decrease insulin to 12 Units. I suspect he has underlying brittle diabtes with difficult to control his sugars. He has PCP as outpatient at [facility].. He is requesting to go home. I advised him to stay for now and monitor blood sugars. Consider discharge if ok with endocrinology and he can monitor his blood sugars at home closely.
--- NOTE | 2018-03-30 09:24 | PN- Diabetes ---
Assessment/Plan Diabetes Assessment: 42 y/o male hx of diabetes 12 years, was in in 2008 for DKA. He was admitted for DKA again after he stopped antidiabetic medications x 2 days. His repeat HbA1c was 12%. DKA has resolved. most likely patient has diabetes type 1. His home regimen is Lantus 20 units daily and Janumet. Plan: Please reduce Levemir to 12 units qHS. Continue the same for Novolog coverage. Will follow Subjective Subjective: His glucose went down from 164 to 50 overnight, despite no Novolog received last night. He is able to eat and blood glucose has been stable during daytime yesterday. Objective Last 24 Hrs of Vital Signs/I&O Vital Signs Date Time Temp Pulse Resp B/P B/P Pulse O2 O2 Flow FiO2 Mean Ox Delivery Rate 03/30 0639 97.9 63 18 126/72 100 Room Air 03/29 2149 98.0 72 18 123/79 100 Room Air 03/29 1300 98.2 76 20 113/70 100 Room Air Intake & Output 03/30 1600 03/30 0800 03/30 0000 Intake Total 240 350 Output Total 400 Balance 240 -50 Intake, Oral 240 350 Output, Urine 400
[2018-03-30 10:08] VITALS: BP 109/59
--- NOTE | 2018-03-30 13:19 | Patient Discharge Instructions ---
Discharge Instructions General Discharge Information You were seen/treated for: DIABETIC KETOACIDOSIS, HYPOGLYCEMIA Watch for these problems: LOW BLOOD GLUCOSE LEVELS, NAUSEA, VOMITING, DIZZINESS, LOSS OF CONSCIOUSNESS: IF ANY OF THESE, PLEASE VISIT YOUR NEAREST EMERGENCY DEPARTMENT Special Instructions: -PLEASE VISIT YOUR PRIMARY CARE DOCTOR WITHIN 1 WEEK OF DISCHARGE AND TELL THEM ABOUT YOUR STAY AT [facility] -PLEASE VISIT YOUR LIQUID LOADER WITHIN 1 WEEK OF DISCHARGE Diet Recommended Diet: Diabetic Activity Activity Self Limited: Yes Acute Coronary Syndrome Inclusion Criteria At DC or during hospital stay patient has or had the following: ACS DIAGNOSIS No Discharge Core Measures Meds if any: Prescribed or Continued at Discharge Meds if any: NOT Prescribed or Continued at Discharge Congestive Heart Failure Inclusion Criteria At DC or during hospital stay patient has or had the following: CHF DIAGNOSIS No Discharge Core Measures Meds if any: Prescribed or Continued at Discharge Meds if any: NOT Prescribed or Continued at Discharge Cerebrovascular accident Inclusion Criteria At DC or during hospital stay patient has or had the following: CVA/TIA Diagnosis No Discharge Core Measures Meds if any: Prescribed or Continued at Discharge Meds if any: NOT Prescribed or Continued at Discharge Venous thromboembolism Inclusion Criteria VTE Diagnosis No VTE Type NONE VTE Confirmed by (Test) NONE Discharge Core Measures - Per Current guidelines, there needs to be overlap - treatment for the first 5 days of Warfarin therapy. - If discharged on Warfarin prior to 5 days of - overlap therapy, the patient will need to be - assessed for post discharge needs including - *Post discharge parental anticoagulation - *Warfarin and/or parental anticoagulation education - *Follow up date to check INR post discharge At least 5 days overlap therapy as Inpatient No Meds if any: Prescribed or Continued at Discharge Note: Overlap Therapy is Warfarin and Anticoagulant Meds if any: NOT Prescribed or Continued at Discharge
[2018-03-30] MEDS ORDERED: LEVEMIR100 UNIT/1 SC ×2 (13:35→14:39)
[2018-03-30] MEDS ORDERED: NOVOLOG FL100 UNIT/1 SC ×3 (13:43→14:39)
--- NOTE | 2018-03-30 14:42 | Discharge Summary ---
Hospital Course Allergies: Coded Allergies: No Known Allergies (03/27/18) Discharge Instructions Medications at Discharge Discharge Medications: Stop taking the following medications: Insulin Glargine,Hum.rec.anlog (Lantus Solostar) 100 UNIT/ML (3 ML) INSULN.PEN SC Every night Qty = 18 Continue taking these medications: Sitagliptin Phos/Metformin HCl (Janumet 50-1,000 MG Tablet) 50 MG-1,000 MG TABLET 1 Tablet ORAL TWICE DAILY Qty = 90 Comments: not given Lisinopril (Lisinopril) 2.5 MG TABLET 1 Tablet ORAL DAILY Qty = 30 Comments: last given @ 1000 Atorvastatin Calcium (Atorvastatin Calcium) 20 MG TABLET 1 Tablet ORAL DAILY Qty = 90 Comments: last given 03/30/18 @ 1000 Start taking the following new medications: Insulin Aspart, Recombinant (Novolog Flexpen) 100 UNIT/ML INSULN.PEN 1 Flexpen SC BEFORE MEALS AND AT BEDTIME Qty = 3 No Refills Instructions: .. 351-400:16U >400:18U Comments: BEFORE EACH MEAL BEDTIME 80-150: 6U 151-200: 8U 201-250: 10U 251-300: 12U 2U 301-350: 14U 3U 351-400: 16U 4U >400: 18U 5U Insulin Detemir (Levemir) 100 UNIT/ML VIAL 1 Vial SC TAKE AT BEDTIME Qty = 3 No Refills Instructions: 12 UNITS AT BEDTIME. Attending MD Review Statement Documenting Attending: Kailyn Salgado MD Other Findings: left against medical advice.
== END 2018-03-30 14:17 | disposition left against medical advice (07) | DRG 420 ==
LOC: ERH 22:24 → 2NB 23:42 → CRI 23:42 → ERHI 23:42 → ENRESERV 03-28 00:27 → CRI 03-28 01:18 → ENTRNSPT 03-28 19:30 → EDTRNSPTSTS 03-28 19:34 → 2NB 03-28 19:49 → CMPTRNSPT 03-28 19:54 → 2NB 03-29 07:53
PROVIDERS: Internal Medicine Adolescent Medicine; Pediatrics; Physical Medicine & Rehabilitation
DX: E10.10 Type 1 diabetes mellitus with ketoacidosis without coma (principal); E86.0 Dehydration; Z79.4 Long term (current) use of insulin; E78.5 Hyperlipidemia, unspecified; T38.3X6A Underdosing of insulin and oral hypoglycemic [antidiabetic] drugs, initial encounter; Z91.128 Patient's intentional underdosing of medication regimen for other reason; R00.0 Tachycardia, unspecified; I12.9 Hypertensive chronic kidney disease with stage 1 through stage 4 chronic kidney disease, or unspecified chronic kidney disease; N18.9 Chronic kidney disease, unspecified; N17.9 Acute kidney failure, unspecified; R11.2 Nausea with vomiting, unspecified; F17.210 Nicotine dependence, cigarettes, uncomplicated; E87.5 Hyperkalemia; D64.9 Anemia, unspecified; E10.22 Type 1 diabetes mellitus with diabetic chronic kidney disease; Z53.21 Procedure and treatment not carried out due to patient leaving prior to being seen by health care provider
CPT/HCPCS: 2NSBP; 83519; ERO; 36415; 36592; 71045; 80307; 81001; 82436; 93005; 93010; 96361; 96374; 99291; J1815; J7042; J7060